=== PATIENT | female | born 1995 | race Caucasian/White ===

== ENCOUNTER 2022-06-17 15:55 | Outpatient (CLI) | payer OTHER, SELFPAY ==
--- NOTE | 2022-06-17 16:00 | CRLHL7_ITS ---
For Patients: As a result of the Century Cures Act, medical imaging exams and procedure reports are released immediately into your electronic medical record. You may view this report before your referring provider. If you have questions, please contact your health care provider. INDICATION: Evaluate anatomy. COMPARISON: 03/25/2022 TECHNIQUE: Real time leos scale imaging of the fetus was performed as well as color Doppler analysis of the umbilical vessels. FINDINGS: Sonographic imaging demonstrates a single living intrauterine gestation. Fetus demonstrates a regular cardiac rate of 148 beats per minute. Fetus has a variable position. The placenta lies posteriorly. With transvaginal imaging, the edge of the placenta is located 1 cm from the internal cervical os. Amniotic fluid volume appears normal. Single deepest vertical pocket: 6.4 cm. The cervix is closed and measures 6.4 cm in length. The composite ultrasound gestational age is calculated at 22 weeks 1 day with an estimated sonographic due date of 10/20/2022. The estimated weight is 461 grams which lies at the greater than 97th %. The following biometric measurements were obtained: Biparietal diameter: 5.4 cm/22 weeks 3 days greater than 97th% Head circumference: 19.9 cm/22 weeks 1 day 94th% Abdominal circumference: 17.7 cm/22 weeks 4 days 94th% Femur length: 3.5 cm/21 weeks 0 days 56th% The HC/AC ratio measures: 1.13 range (1.05-1.23) On anatomic survey, there is a normal appearance of the cerebral ventricles, cavum septi pellucidi, cisterna magna and cerebellum. The nose, lips, and facial profile appear normal. The cervical, thoracic and lumbar spine are well visualized and appear normal. There is a normal four-chamber heart view and the left and right ventricular outflow tracts appear normal. The diaphragm and stomach appear normal. The kidneys and bladder also appear normal. There is a normal three-vessel cord and cord insertion site. The four extremities appear normal. IMPRESSION: Sonographic gestational age 22 weeks 1 day and sonographic due date of 10/20/2022. Sonographic age 11 days ahead of the clinical age. Estimated weight greater than 97th percentile. Abdominal circumference 94th percentile. Normal anatomic survey. Low-lying placenta with the edge of the placenta 1 cm from the internal cervical os with transvaginal imaging. Dictated by Thomas Velez MD @ 06/18/2022 9:39:06 AM (Electronically Signed)
== END 2022-06-17 15:56 | disposition home or self-care (01) ==
LOC: US 15:56
PROVIDERS: Visit Provider Physician Assistant
DX: Z34.92 Encounter for supervision of normal pregnancy, unspecified, second trimester (principal); Z3A.20 20 weeks gestation of pregnancy
CPT/HCPCS: 76805

== ENCOUNTER 2022-08-12 16:52 | Outpatient (CLI) | payer OTHER, SELFPAY ==
--- NOTE | 2022-08-12 17:00 | CRLHL7_ITS ---
For Patients: As a result of the Century Cures Act, medical imaging exams and procedure reports are released immediately into your electronic medical record. You may view this report before your referring provider. If you have questions, please contact your health care provider. INDICATION: Third trimester scan, evaluate growth. COMPARISON: none TECHNIQUE: Real time leos scale imaging of the fetus was performed as well as color Doppler and spectral Doppler analysis of the umbilical artery. FINDINGS: Sonographic imaging demonstrates a single living intrauterine gestation. Fetus demonstrates a regular cardiac rate of 130 beats per minute. Fetus has a adelfo breech position. The placenta lies right anterior without evidence of placenta previa. The edge of the placenta is located 5.8 cm from the internal cervical os. Amniotic fluid volume appears normal and there is a single deepest vertical pocket: 4.2 cm. The estimated weight is 1487gm which lies at the 82nd %. On the prior OB ultrasound exam dated 06/17/2022 the estimated weight was at the greater than 97th%. BPD 66th percentile. HC 94th percentile. AC 84th percentile. FL 47th percentile. The HC/AC ratio measures 1.11 range (0.97-1.19). IMPRESSION: No previa. The edge of the placenta is 5.8 cm from the internal cervical os. Sonographic gestational age 30 weeks 0 days and sonographic due date of 10/21/2022. Sonographic age is 10 days ahead of the clinical age. Estimated weight 82nd percentile. Abdominal circumference 84th percentile. Dictated by Thomas Velez MD @ 08/13/2022 10:34:50 AM (Electronically Signed)
== END 2022-08-12 16:53 | disposition home or self-care (01) ==
LOC: US 16:52
PROVIDERS: Visit Provider Registered Nurse
DX: O44.43 Low lying placenta NOS or without hemorrhage, third trimester (principal); Z3A.28 28 weeks gestation of pregnancy; Z36.89 Encounter for other specified antenatal screening
CPT/HCPCS: 76816; 86592; 86787

== ENCOUNTER 2022-10-07 09:46 | Outpatient (CLI) | payer OTHER, SELFPAY ==
--- OUTSIDE RECORDS SUMMARY | 2022-10-07 10:37 | XMS_ITS | Clinical Summary ---
:1995 Author Organization [facility] [place] [address] Care Team Providers Name Role Phone Paty Aguilar MD Primary Care Provider Unavailable Allergies Not on File Medications Not on file Active Problems Not on file Social History Tobacco Use Types Packs/Day Years Used Date Never Assessed Sex Assigned at Date Recorded Not on file Plan of Treatment Health Maintenance Due Date Last Done Comments COVID-19 vaccine series (#1) 03/23/1996 Tdap 2006 Depression screening for age 12+ 2007 BMI (ht and wt on same day) for age 18+ 2013 Hepatitis C screening for age 18-79 2013 Tetanus booster 2015 Pap test for age 21-65 2016 Influenza for age 9-49 07/31/2022 Results Not on filefrom Last 3 Months 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
[2022-10-08 13:32] LABS: Strep B DNA Probe Negative (Negative)
[2022-10-09 08:56] LABS: Strep B Pen/Amox Allergy No
== END 2022-10-07 09:47 | disposition home or self-care (01) ==
LOC: NFLDREF 09:47
PROVIDERS: Visit Provider Obstetrics & Gynecology
DX: Z34.93 Encounter for supervision of normal pregnancy, unspecified, third trimester (principal); Z3A.36 36 weeks gestation of pregnancy
CPT/HCPCS: 87081; 87653

== ENCOUNTER 2022-10-10 15:59 | Outpatient (CLI) | payer OTHER, SELFPAY ==
--- NOTE | 2022-10-10 16:00 | CRLHL7_ITS ---
For Patients: As a result of the Century Cures Act, medical imaging exams and procedure reports are released immediately into your electronic medical record. You may view this report before your referring provider. If you have questions, please contact your health care provider. INDICATION: Third trimester scan, evaluate growth. Size less than dates. COMPARISON: 08/12/2022 TECHNIQUE: Real time leos scale imaging of the fetus was performed. FINDINGS: Sonographic imaging demonstrates a single living intrauterine gestation. Fetus demonstrates a regular cardiac rate of 137 beats per minute. Fetus has a vertex position. The placenta lies anteriorly. Amniotic fluid volume appears normal and there is a single deepest vertical pocket: 5.0 cm. The estimated weight is 3274gm which lies at the 74th %. On the prior OB ultrasound exam dated 08/12/2022 the estimated weight was at the 82nd%. BPD 81st percentile. HC 69th percentile. AC 87th percentile. FL 32nd percentile. The HC/AC ratio measures 0.99 range (0.90-1.05). IMPRESSION: Sonographic gestational age 37 weeks 5 days and sonographic due date of 10/26/2022. Sonographic age 5 days ahead of the clinical age. Estimated weight 74th percentile. Abdominal circumference 87th percentile. Dictated by Thomas Velez MD @ 10/12/2022 12:21:00 PM (Electronically Signed)
--- OUTSIDE RECORDS SUMMARY | 2022-10-10 16:04 | XMS_ITS | Clinical Summary ---
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
== END 2022-10-10 16:00 | disposition home or self-care (01) ==
LOC: US 16:00
PROVIDERS: Visit Provider Obstetrics & Gynecology
DX: O36.5930 Maternal care for other known or suspected poor fetal growth, third trimester, not applicable or unspecified (principal); Z3A.37 37 weeks gestation of pregnancy
CPT/HCPCS: 76816

== ENCOUNTER 2022-10-26 04:24 | Inpatient (IN) | payer OTHER, SELFPAY ==
[2022-10-26] VITALS (54 sets, daily range): BP systolic 85–142; BP diastolic 48–77; PULSE 67–106; RESP 16–18; TEMP 36.4–37.9; O2SAT 95–100; BMI 28.3
--- OUTSIDE RECORDS SUMMARY | 2022-10-26 03:24 | XMS_ITS | Clinical Summary ---
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
[2022-10-26] MEDS: ONDANSETRON 2 MG/ML inj 4 MG IV (05:10)
[2022-10-26 05:17] LABS: Basophils Percent Auto 0.1 % (0.0-3.0); Hematocrit 35.6 % (33.0-51.0); Hemoglobin* 12.4 gm/dL (12.0-16.0); Immature Granulocytes Pct Auto 0.2 %; Mean Corpuscular HGB Conc 35 gm/dL (32-36); Mean Corpuscular Hemoglobin 32 pg (26-34); Mean Corpuscular Volume 91 fL (80-100); Monocytes Percent Auto 4.3 % (0.0-11.0); Neutrophils Percent Auto 88.4 % (42.0-72.0); Platelet Count* 141 K/uL (140-440); RDW Coefficient of Variation % 13.1 % (11.5-15.5); Red Blood Count 3.92 m/uL (4.00-5.20); White Blood Count* 18.18 K/uL (4.50-11.00)
[2022-10-26 05:25] LABS: Slide Review Reflex No
[2022-10-26] MEDS: hydrOXYzine pamoate 25 MG CAPSULE 100 MG PO (05:48)
[2022-10-26] MEDS: MORPHINE 10 MG/ML inj IM (05:49)
[2022-10-26] MEDS: LACTATED RINGERS 1000 ML 1,000 ML 999 ML IV (06:03)
[2022-10-26 06:05] LABS: SARS PCR* Negative SARS-CoV-2 (Negative)
--- NOTE | 2022-10-26 09:18 | W.PM.LDBA ---
Subjective History of Present Illness Date Seen: 10/26/22 Narrative: Patient is being admitted to Labor and Delivery for spontaneous onset of labor with bloody show. She is a 27 year old at 39 2/7 weeks gestation. Her full history and physical was dictated by Sallie Topete CNM on 10/14/2022. Please see this for details. The patient began feeling some uterine contractions around 7:00 p.m. last evening. The became more intense and painful and she has started to notice some vaginal bleeding at 9:00 p.m.. She presented to the center for evaluation early this morning. She was quite uncomfortable with contractions at that time. She was also still found to have some bloody show. She was given Vistaril, but vomited the medication. She was then administered IM morphine, was able to get some rest. This morning, she is still experiencing some contractions, but they have decreased in intensity and frequency, now occurring at 5-7 minute intervals. 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 OB PROBLEM LIST: Partner: Robert. Baby: Boy. Blood type: A+ H&P done 10/14/2022 by VICTORIANO Pardo 1. Nicotine user, mostly vaping Recommended stopping, willing to try nicotine inhaler, ordered. Per ACOG, 6-8 per day recommended, may use up to 16. Try tapering dose over 6 weeks. 05/20/2021: Reported she did not like the nicotine inhaler. Is working on tapering vaping and discontinuing. 1-2 puffs / hour 2. History of missed AB at 16 weeks with D&C 3. Hx of gonorrhea and chlamydia, about 10 years ago per patient, with different partner 4. Low lying placenta at 20 week anatomy scan. Placental tip 1 cm from cervical os. Recommend pelvic rest and call with any bleeding. Recommend follow-up ultrasound to reassess placental location at 28 weeks. 28 weeks: Placenta 5.8cm from internal os. No further pelvic rest! 5. growth greater than 97% 20 week anatomy scan. Recommend growth ultrasound at 28 weeks. 28 weeks: EFW 82%. 6. Varicella immune 7. Breech at 32 weeks, resolved by 35 weeks. 8. Measuring smaller than dates EFW 74% at 36 weeks, vertex NEEDS pap Flu: 09/09/2022 COVID: Declines TDap: 08/29/22 OB - H&P: Exam Physical Exam: Vital signs: Temp Pulse Resp BP Pulse Ox 97.6 F 71 16 111/59 L 98 10/26/22 06:30 10/26/22 06:11 10/26/22 06:30 10/26/22 06:11 10/26/22 03:34 Constitutional: Constitutional: no acute distress (The uncomfortable visibly with contractions) Routine HEENT Exam: Head: Present normocephalic Eye: Present normal appearance Routine Neck Exam: Neck: Present full ROM Routine Respiratory Exam: Respiratory: Present CTA bilaterally Routine Cardiovascular Exam: Cardiovascular: RRR Routine Abdominal Exam: Abdominal: Absent tenderness Routine Exam: Patient deferred: external exam Perineum Description: Normal Comments: On sterile speculum examination, there was some thin pink vaginal discharge present in the vaginal vault. This was collected for AmniSure evaluation. Detailed Labor and Delivery Exam: Patient Gravid: yes Dilation (cm): 2 Effacement (%): 85 Cervix position: mid Consistency: soft Tachysystole: No Contraction intensity: Mild Fetus (Single): Station: -1 (Vertex) Heart Rate Baseline: 115 Monitor Accelerations: Present Monitor Decelerations: Early (Occasional) Longterm Variability: Moderate (6-25) Routine Extremities Exam: Extremities: Present normal inspection; Absent pedal edema Routine Back/Spine/Pelvis Exam: Back/Spine: full ROM Routine Neurological Exam: Present alert and oriented X3 Routine Psychiatric Exam: Present normal affect OB - Problem Based A/P Additional Plan (1) Spontaneous onset of labor: Status: Acute Delivery/Labor/Induction Plan Plan: expectant management
[2022-10-26 09:22] LABS: Amnisure Rom* Negative
[2022-10-26] MEDS: LACTATED RINGERS 1000 ML 1,000 ML 125 ML IV (10:24)
[2022-10-26] MEDS: ROPIVACAINE 0.2% 100 ml 100 ML 12 MG EPIDURAL (12:33)
[2022-10-26] MEDS: LIDOCAINE 2% (PF) 5 ML VIAL EPIDURAL (12:33)
--- NOTE | 2022-10-26 13:11 | P.ANBPRC_ITS ---
[facility] Medical History (Updated 10/26/22 @ 09:24 by Rosey Mejía MD) Missed Surgical History (Updated 10/14/22 @ 16:04 by Sallie Topete CNM) History of appendectomy History of dilation and curettage Family History (Updated 10/14/22 @ 16:07 by Sallie Topete CNM) Mother No problems noted. Father No problems noted. 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 Partner: Robert, Romel Lives with: Robert, brother in law and girlfriend, another roommate Pets: 3 dogs, snake, 9 outdoor cat (has litter box in garage) Abuse: Denies past/present, Pscyhosocial Special Diet: Denies Ok with a blood transfusion: yes Culture or evangelical beliefs: denies RISK FACTORS Exercise Times/wk: denies Depression/Anxiety: Lots of anxiety about this due to loss at 16 weeks w/ previous MARIEL: 13 PHQ 9: 5 Seat Belt Use: Routinely Smoking: Vaping, daily 1x per hour; previous smoker; Robert also vapes and [id number] smokes cigarettes, not in house; Brother in law uses THC not in home Alcohol/day: Denies while , prior yes Caffeine: Energy drinks 1/day prior to , Drug Use: Denies past/present Chicken Pox: Yes as a child MRSA: Denies Smoking Status: Current every day smoker Meds Home Medications and Allergies Home Medications Medication Instructions Recorded Confirmed Type ascorbic acid (vitamin C) 1,000 mg 1 g PO QDAY 06/17/22 10/26/22 History tablet calcium carbonate 500 mg calcium 500 mg PO DAILY 06/17/22 10/26/22 History (1,250 mg) tablet docosahexaenoic acid 200 mg 200 mg PO DAILY 06/17/22 10/26/22 History capsule ( DHA) ergocalciferol (vitamin D2) 10 mcg 400 unit PO QDAY 06/17/22 10/26/22 History (400 unit) tablet esomeprazole magnesium 20 mg 20 mg PO QDAY 09/26/22 10/26/22 History capsule,delayed release Allergies Allergy/AdvReac Type Severity Reaction Status Date / Time No Known Allergies Allergy Verified 10/26/22 03:51 Results Labs Labs: Laboratory Results - last 24 hr 10/26/22 10/26/22 10/26/22 05:11 05:11 05:20 WBC 18.18 H RBC 3.92 L Hgb 12.4 Hct 35.6 MCV 91 MCH 32 MCHC 35 RDW Coeff of Vanda 13.1 Plt Count 141 Neut % (Auto) 88.4 H Lymph % (Auto) 7.0 L Tyrrell % (Auto) 4.3 Eos % (Auto) 0.0 Baso % (Auto) 0.1 Neut # (Auto) 16.10 H Lymph # (Auto) 1.30 Tyrrell # (Auto) 0.80 Eos # (Auto) 0.00 Baso # (Auto) 0.00 Abs Immat Gran (auto) 0.00 Imm/Tot Granulo (auto) 0.2 Membrane Rupture SARS-CoV-2 (PCR) Negative SARS-CoV-2 Blood Type A Positive Antibody Screen NEGATIVE 10/26/22 09:03 WBC RBC Hgb Hct MCV MCH MCHC RDW Coeff of Vanda Plt Count Neut % (Auto) Lymph % (Auto) Tyrrell % (Auto) Eos % (Auto) Baso % (Auto) Neut # (Auto) Lymph # (Auto) Tyrrell # (Auto) Eos # (Auto) Baso # (Auto) Abs Immat Gran (auto) Imm/Tot Granulo (auto) Membrane Rupture Negative SARS-CoV-2 (PCR) Blood Type Antibody Screen Vital Signs Vital Signs: Last Vital Signs Temp 97.6 F 10/26/22 06:30 Pulse 97 10/26/22 13:10 Resp 16 10/26/22 06:30 BP 105/55 L 10/26/22 13:10 Pulse Ox 100 10/26/22 13:01 Weight: 79.469 kg Height: 167.64 cm Anesthesia Procedures Epidural Insertion Patient Location: OB Start Time: 12:15 Stop Time: 13:15 Start Date: 10/26/22 Stop Date: 10/26/22 Reason for Block: primary anesthetic Patient Position: sitting Performed By: Jose Ramon Hernandez Preanesthetic Checklist: IV checked, risks and benefits discussed, surgical consent, monitors and equipment checked, pre-op evaluation, timeout performed and anesthesia consent Prep: chlorhexidine gluconate Monitoring: blood pressure monitoring, color television console monitor, continuous pulse oximetry and heart rate Approach: midline Vertebral Space: lumbar (1-5) Needle Type: Tuohy needle Injection Technique: continuous catheter Needle gauge: 17 Needle Length (cm): 10 cm Needle Insertion Depth (cm): 6 Catheter Gauge: 19 Catheter Type: multi-orifice Catheter at skin depth (cm): 12 Test Dose Result: negative and lidocaine 1.5% with epinephrine 1 to 200,000 Events: other
--- NOTE | 2022-10-26 15:30 | P.OBPN_ITS ---
Subjective Time Seen by Provider: 15:30 Date Seen: 10/26/22 Narrative: Comfortable with epidural. Objective Vital Signs: Last Vital Signs Temp 98.3 F 10/26/22 11:01 Pulse 78 10/26/22 15:07 Resp 16 10/26/22 11:01 BP 114/57 L 10/26/22 15:07 Pulse Ox 100 10/26/22 13:01 Pelvic Exam Dilation (cm): 5 Effacement (%): 90 Station: 0 Comments: bloody show Contractions Monitor mode: External Contraction Frequency: 2-4 Contraction intensity: Mild Assessment Station: 0 (Vertex) Amniotic Membrane Status: AROM (fluid color uncertain due to bloody show) Status: Category ll Heart Rate Baseline: 115 Retirement Variability: Moderate (6-25) Monitor Accelerations: Present Monitor Decelerations: Early (Occasional) Plan Plan: AROM performed. Continue current management.
[2022-10-26] MEDS: OXYTOCIN 30 unit/500 ML in NS 30 UNIT/500 ML BAG 300 UNIT IVPB (19:18)
[2022-10-26] MEDS: LIDOCAINE 1 % PF 30 ML INJECTION (19:33)
[2022-10-26] MEDS: LORazepam 2 MG/ML inj 0.5 MG IVP (19:52)
--- NOTE | 2022-10-26 19:58 | P.OBPRC_ITS ---
Procedure Delivery date: 10/26/22 Procedure Done: Global Intrapartal Events: Excessive Bleeding (Presented with > average bloody show in early labor) Delivery augmentation: rupture of membranes Delivery monitor: external FHT and external uterine Route of delivery: Laceration description: Vaginal - 2nd Degree Delivery repair: Chromic (3-0) Estimated blood loss (mL): 190 Anesthesia type: Epidural Disposition: floor Complications: None. Narrative: The patient is a 27 year-old admitted on 10/25/2022 at 39 Weeks, 1 Days gestation for bloody show in early labor.? Cervical exam on presentation was 1.5 cm/75 % effaced/-1 station with membranes intact in vertex presentation.? Contractions were every 6 minutes.? heart rate demonstrated baseline 115 bpm with moderate variability, + accelerations, - decelerations; a category 1 tracing.?The patient was given IM morphine overnight for sleep. The following morning, cervix was 2 cm dilated, 85% effaced. Labor was managed expectantly. Labor onset:? 0900 om 10/26/2022 AROM occurred at 1527 with clear fluid mixed with bloody show. ? Labor Analgesia:? Fentanyl @0945 and 1025, Epidural @ 1230 ? Pitocin:? No ? Complete:? 1820 ? Pushing:? 1830 ? heart tones during second stage were 110s-120s baseline with variable decels to 80s-90s, goo variability. ? At 1917 a viable male infant delivered in vertex OA presentation over intact perineum via spontaneous vaginal delivery.? was placed on maternal abdomen.? Cord was clamped and cut after a 30-60 second delay.? Nose and mouth were bulb suctioned.? weight pending.? 8 at 1 minute and 8 at 5 minutes.? Shoulder dystocia: no.? Nuchal cord: yes, loose x1, rediced over the head prior to delivery of the shoulders. ? Placenta delivered spontaneously and complete at 1926 with a 3 vessel cord. ? Mother and were stable after delivery. ? Lacerations:? 2nd degree vaginal midline, repaired with 3-0 chromic. ? Blood loss: 190 mL. Blood loss measurement type: QBL ? Sponge and needles counts are correct. Patient experienced muscle contractures in neck, jaw and shoulders following delivery thought to be secondary to hyperventilation and shaking. Coached on slow breathing, 0.5 mg lorazepam administered IV. [place] Gender: Male presentation: vertex Placental Delivery Description: Spontaneous Cord Description: 3 Vessels and Nuchal Cord (x1, loose)
[2022-10-27] MEDS: ACETAMINOPHEN 500 MG TABLET 1000 MG PO ×3 (00:31→15:53)
[2022-10-27 03:10] VITALS: BP 105/68; PULSE 73; RESP 16; TEMP 36.6; O2SAT 95
[2022-10-27] MEDS: IBUPROFEN 600 MG TABLET PO ×3 (04:13→20:20)
[2022-10-27 07:41] LABS: Hemoglobin* 11.6 gm/dL (12.0-16.0)
--- NOTE | 2022-10-27 08:06 | PM.OBPNVD1 ---
OB - PN:Subj Subjective Time Seen by Provider: 08:06 Date Seen: 10/27/22 Interval history: Into room for introductions and to assess ptSuad Leung is a 27 year-old G2 now P0011 admitted on 10/25/2022 at 39 Weeks, 1 Days gestation for bloody show in early labor. She had an uncomplicated vaginal delivery. She delivered a viable male infant. She is breast feeding, which is going fairly well but pt would like continued support from RN and today. the patient has done well. Patient comments OB post-: no complaints, pain well controlled, tolerating diet and flatus present status: and doing well [place] feeding status: exclusively OB - PN: Obj Exam Physical Exam: Vital signs: Temp Pulse Resp BP Pulse Ox O2 Del Method 97.9 F 73 16 105/68 95 10/27/22 03:10 10/27/22 03:10 10/27/22 03:10 10/27/22 03:10 10/27/22 03:10 10/27/22 03:10 Constitutional: Constitutional: no acute distress Routine HEENT Exam: Head: Present normocephalic Eye: Present normal appearance Routine Neck Exam: Neck: Present full ROM Routine Respiratory Exam: Respiratory: Present CTA bilaterally Routine Cardiovascular Exam: Cardiovascular: Present RRR Routine Abdominal Exam: Abdominal: Present normal bowel sounds, soft and tenderness Fundus: Present firm Routine Exam: External: Present normal external exam Perineum Description: Normal Routine Extremities Exam: Extremities: Present full ROM; Absent pedal edema Routine Back/Spine/Pelvis Exam: Back/Spine: Present full ROM Routine Skin Exam: Skin: Present dry, intact, normal color and warm; Absent rash Routine Neurological Exam: Neurological: Present alert and oriented X3 Detailed Neurological Exam: Coma Scale: Eye Opening: Spontaneous (4) Verbal Response: Orientated (5) Routine Psychiatric Exam: Psychiatric: Present normal affect, normal thought process, cooperative, good insight and good judgment OB - PN: Obj Data Labs Labs: Laboratory Results - last 24 hr 10/26/22 10/27/22 09:03 07:33 Hgb 11.6 L Membrane Rupture Negative OB - PN: A/P Vaginal Delivery Assessment and Plan (1) state: Status: Acute (2) Lactating mother: Status: Acute Plan 27 yo G2 now P1 PPD 1 Lactating Mother Routine cares support as needed Plan to discharge home tomorrow Plan day: 1 Plan: routine care
[2022-10-27 08:10] VITALS: BP 110/71; PULSE 64; RESP 14; TEMP 36.6; O2SAT 96
[2022-10-27] MEDS: DOCUSATE SODIUM 100 MG CAPSULE PO (09:33)
[2022-10-27 13:00] VITALS: BP 119/78; PULSE 65; RESP 14; TEMP 37
[2022-10-27 15:48] VITALS: BP 116/56; PULSE 95; RESP 16; TEMP 36.4; O2SAT 96
[2022-10-27 20:15] VITALS: BP 123/69; PULSE 65; RESP 16; TEMP 37; O2SAT 96
[2022-10-28 03:15] VITALS: BP 110/72; PULSE 73; RESP 16; TEMP 36.6; O2SAT 94
[2022-10-28] MEDS: ACETAMINOPHEN 500 MG TABLET 1000 MG PO (04:49)
[2022-10-28 08:27] VITALS: BP 118/71; PULSE 79; RESP 16; TEMP 36.6; O2SAT 96
[2022-10-28] MEDS: DOCUSATE SODIUM 100 MG CAPSULE PO (08:33)
[2022-10-28] MEDS: IBUPROFEN 600 MG TABLET PO (08:33)
--- NOTE | 2022-10-28 08:39 | P.DS_ITS ---
DS: Providers Provider Date Seen: 10/28/22 Date of admission: 10/26/22 04:24 Primary care physician: Not a Local Provider Admitting Clinician: Rosey Mejía MD Attending Physician on discharge: Rosey Mejía MD DS: Diagnosis Discharge Diagnosis (1) Lactating mother: Status: Acute (2) state: Status: Acute (3) Status post normal vaginal delivery: Status: Acute Exam Const: Vital Signs, click to edit/add: Vital Signs - 24 hr 10/27/22 13:00 10/27/22 15:48 10/27/22 20:15 Temperature 98.6 F 97.5 F L 98.6 F Pulse Rate [Pulse Oximeter] 65 95 65 Respiratory Rate 14 16 16 Blood Pressure [Ri ght Arm] 119/78 116/56 L 123/69 Pulse Oximetry 96 96 Oxygen Delivery Me thod Room Air Room Air Room Air 10/28/22 03:15 10/28/22 08:27 Temperature 97.8 F 97.9 F Pulse Rate [Pulse Oximeter] 73 79 Respiratory Rate 16 16 Blood Pressure [Ri ght Arm] 110/72 118/71 Pulse Oximetry 94 96 Oxygen Delivery Me thod Room Air Documenting provider has reviewed patient's vital signs: yes Common normals: no apparent distress, oriented x3, healthy appearing and alert HENMT: Common normals: normocephalic Head and scalp: normocephalic Eye: Common normals: PERRL Pupil: PERRL Neck & C-Spine: Common normals: full ROM and supple Chest: Common normals: inspection of chest normal Resp: Common normals: normal respiratory effort and clear to auscultation bilaterally Auscultation: clear to auscultation bilaterally Cardio: Common normals: regular rate and regular rhythm Rate: regular rate Rhythm: regular rhythm GI: Common normals: soft to palpation Palpation: soft : OB/external & speculum: Yes perineal/vaginal laceration (well approximated) Laceration: 2nd Uterus: U/U Lochia: small Back & Pelvis: Common normals: thoracic and lumbar spine normal to inspection Extremity: Common normals: normal to inspection and full ROM Neuro: Common normals: oriented x3 Sensorium/orientation: alert Speech: speech normal Psych: Common normals: mental status grossly normal, thought process normal, speech normal and activity/motor behavior normal Speech: normal speech Thought process: normal thought process Skin: Common normals: no rashes or lesions noted General skin exam: no rashes or lesions noted OB - DS: Summary Hospital Course Hospital Course: The patient is a 27 year old G 2 P 1011 at 39 1/7 weeks gestation that was admitted to the [facility] on 10/26/22 for spontaneous onset of labor. She had an uncomplicated vaginal delivery. She delivered a viable male . She is breast feeding. the patient has done well. The pain is well controlled with current medications.? She has no new complaints.? Urinary output is adequate and she is voiding without difficulty.? Has a good appetite, is tolerating a general diet, is passing flatus, and has not yet had a bowel movement.? Has small amount of rubra lochia.? She is ambulating well. She is and reports it is going well.? Peripartum Data delivery method: Vaginal Laceration description: Perineal - 2nd Degree complications: none Dickens Infant Gender: Male Infant Discharge Plan: Home Status at Discharge Functional status at discharge: independent ambulation Overall status at discharge: patient is progressing back to baseline Time Spent with Patient Time attestation: Total time spent providing and/or coordinating discharge services: Time spent: Less than 30 minutes Discharge Plan Discharge Disposition: Home, Self-Care Date of Admission: 10/26/22 04:24 Primary Care Provider: Provider,Not a Local Condition: Stable Anticipated Discharge Date/Time: 10/28/22 09:00 Discharge Medications: New docusate sodium 100 mg Capsule 100 mg PO DAILY Qty: 30 0RF ibuprofen 600 mg Tablet 600 mg PO Q6H PRNQty: 30 0RF acetaminophen 500 mg Tablet 1,000 mg PO Q6H PRNQty: 0 0RF Continued ergocalciferol (vitamin D2) 10 mcg (400 unit) tablet 400 unit PO QDAY ascorbic acid (vitamin C) 1,000 mg tablet 1 g PO QDAY DHA 200 mg capsule 200 mg PO DAILY calcium carbonate 500 mg calcium (1,250 mg) tablet 500 mg PO DAILY esomeprazole magnesium 20 mg capsule,delayed release(DR/EC) 20 mg PO QDAY Discharge Orders: Discharge Order (Routine); Ordered 10/28/22 Ordered By: Sallie Topete Patient Education: OB Vaginal/Breast Feeding Additional Instructions: Discharge instructions were reviewed with the patient including signs and symptoms of infection and home going medications Nothing vaginally for 6 weeks: no tampons or intercourse Do not drive while taking narcotic pain medication(s) Off Work or School for 6 weeks 2-week visit: discuss infant feeding concerns, review control options and screen for anxiety/depression. 6-week visit for an annual exam. consultation services are available to all mothers and babies for the first year after delivery.? To make an appointment, please call [phone]. Activity Level: Activity as Tolerated Follow Up Appointments: [facility] [Provider Group] (2 weeks and 6 weeks ) Forms: General Assembly Info Instructions
== END 2022-10-28 12:10 | disposition home or self-care (01) | DRG 807 ==
LOC: OB OUT 04:44 → OB 04:44
PROVIDERS: Admitting Provider Obstetrics & Gynecology; Visit Provider Obstetrics & Gynecology
DX: O99.334 Smoking (tobacco) complicating childbirth (principal); Z37.0 Single live birth; F17.290 Nicotine dependence, other tobacco product, uncomplicated; O70.1 Second degree perineal laceration during delivery; R06.4 Hyperventilation; Z3A.39 39 weeks gestation of pregnancy
CPT/HCPCS: 01967; 36415; 84112; 85018; 85025; 86850; 86900; 86901; 87635; A9270; J2001; J2060; J2270; J2405; J2795; J3010; J7120

== ENCOUNTER 2022-11-05 13:03 | Outpatient (CLI) | payer OTHER, SELFPAY ==
--- OUTSIDE RECORDS SUMMARY | 2022-11-05 13:36 | XMS_ITS | Clinical Summary ---
:1995 Author Organization [facility] [place] [address] Care Team Providers Name Role Phone Paty [...] 2006 Depression screening for age 12+ 2007 HIV for age 15-65 2010 BMI (ht and wt on same day) for age 18+ 2013 Hepatitis C screening for age 18-79 2013 Tetanus booster 2015 Pap test for age 21-65 2016 Influenza for age 9-49 07/31/2022 Results Not on filefrom Last 3 Months Care Teams Beef Selector Relationship Specialty Start Date End Date Paty Aguilar MD PCP - General Family Practice 11/03/14
--- NOTE | 2022-11-05 17:14 | W.PM.LAC.MC ---
Consult Note - Mom Date of Visit Date of visit: 11/05/22 healthcare market consultant: Evelyn Kramer Visit Code: Visit Patient's Information Phone number: [phone] : 2 Para: 1 Allergies No Known Allergies Allergy (Verified 10/26/22 03:51) Mother's Medical History: Medical History (Updated 10/29/22 @ 00:01 by ) Delivery Information Weeks Gestation: 39.2 Gestational Age: AGA Weight: 3.27 kg Discharge Weight: 3.076 kg Baby's Information Baby's Age at Visit: 9 days Baby's Provider or Clinic: Dr. Florez Jaundice: No Reason for Consult Reason for Consult: difficulty latching on the right, using a nipple shield on both sies, concerned the production isn't equal Past Experience Past Experience: No Current Frequency of Day Feedings: every 3 - 4 hours around the clock Both Breasts: Yes Suck: strong Latch: fairly wide Length of Time: 10 - 15 min/side Pumping Pumping: Yes (occasionally) Quantity Pumped: has pumped between feedings; 1 - 1.5 oz/side Supplementing EMB Supplement: Yes (baby has had two 3 oz bottles) Formula Supplement: No Baby Elimination Number of Wet Diapers a Day: with every feeding Number of BM a Day: with every feeding; yellow and seedy Breast/Nipple Condition Breast Information: WNl Engorgement: No Maternal Nipple Condition - Left: Common Nipple Maternal Nipple Condition - Right: Inverted Sore Nipples: No Onsite Pre-Feed weight: 3.304 kg Post-Feed weight: 3.382 kg Milk Transferred (mL): 78 Pre-Nursing Left Nipple: Within Normal Limits Pre-Nursing Right Nipple: Within Normal Limits Post-Nursing Left Nipple: Within Normal Limits Post-Nursing Right Nipple: Within Normal Limits Assessments/Interventions Assessments/Interventions: Met with mom and this now 9 day old ex- term AGA baby for consult.? Mom reports she's nursing with the nipple shield every 3 - 4 hours for 10 - 15 minutes/side.? She's pumped on occasion in between feedings and twice POC have given baby a bottle as he was hard to calm; at those feedings he took 3 oz.? Mom is concerned that her right side doesn't produce quite as much as her left.? She brought her Evenflo pump to clinic to review. Breasts WNL- symmetrical with rounded lower quadrants, intramammary distance is < 1.5 inches.? Right nipple is inverted, everts slightly with stimulation; left is everted.? No damage noted to either nipple. Baby has gained 30 grams since his circumcision visit yesterday and he's 34 grams above BW at 9 DOL.? Per POC he prefers to turn his head left, but has equal ROM when moving his extremities.? His palate is WNL.? His upper frenulum is tight and his lower frenulum may be a little posterior but he easily extends his tongue past the gumline and the tongue has good lateral movement.? He has a strong suck on a finger. We attempted to latch baby to the right side without the shield but were unsuccessful.? When the shield was used baby appeared to have a deep latch and mom was comfortable.? He nursed for about 10 minutes before getting sleepy.? Mom transferred him to the left and with assistance was able to latch him without the shield.? He again nursed for about 10 minutes, transferring 76 ml. We reviewed mom's pump; the flange may be a little big but mom is comfortable when she pumps.? Gave a flange fit guide and she could try a smaller size to experiment.? Also reviewed it's common to have one side produce more milk than the other.? A few suggestions were given that may boost production on that side. Plan: 1. Continue to breastfeed ALD- not letting him go past 3 - 4 hours for now.? Suggested she continue offering both sides and practice without the shield at least on the left.? OK to use it if mom or baby get frustrated and try again at another feeding.? Baby is a little bit of a sleepy feeder but POC do a good job of keeping him awake. 2. Suggested mom pump to comfort if she's uncomfortable after baby nurses, or pump to empty if baby doesn't nurse well/she doesn't see milk in the shield. 3. No medical reason to supplement.? If baby seems hungry after a nursing session, ok to offer a bottle (reviewed paced feeding) or mom could try the going back to the starting side. 4. Gave suggestions to help with baby's neck ROM. 4. Will f/u on 11/01 for a one month weight check; could suggest bodywork for baby. Meds Home Medications and Allergies Home Medications Medication Instructions Recorded Confirmed Type ascorbic acid (vitamin C) 1,000 mg 1 g PO QDAY 06/17/22 10/26/22 History tablet calcium carbonate 500 mg calcium 500 mg PO DAILY 06/17/22 10/26/22 History (1,250 mg) tablet docosahexaenoic acid 200 mg 200 mg PO DAILY 06/17/22 10/26/22 History capsule ( DHA) ergocalciferol (vitamin D2) 10 mcg 400 unit PO QDAY 06/17/22 10/26/22 History (400 unit) tablet esomeprazole magnesium 20 mg 20 mg PO QDAY 09/26/22 10/26/22 History capsule,delayed release Allergies Allergy/AdvReac Type Severity Reaction Status Date / Time No Known Allergies Allergy Verified 10/26/22 03:51
== END 2022-11-05 13:04 | disposition home or self-care (01) ==
PROVIDERS: Visit Provider Registered Nurse
DX: Z39.1 Encounter for care and examination of lactating mother (principal)
CPT/HCPCS: 99211

== ENCOUNTER 2023-10-13 18:08 | Outpatient (CLI) | payer OTHER, SELFPAY | END 2023-10-13 18:09 | disposition home or self-care (01) | PROVIDERS: Visit Provider Registered Nurse | DX: Z01.419 Encounter for gynecological examination (general) (routine) without abnormal findings (principal); Z13.6 Encounter for screening for cardiovascular disorders; Z13.1 Encounter for screening for diabetes mellitus | CPT/HCPCS: 80061; 82947 ==

== ENCOUNTER 2025-04-04 16:02 | Outpatient (CLI) | payer OTHER, SELFPAY ==
--- NOTE | 2025-04-04 16:00 | CRLHL7_ITS ---
For Patients: As a result of the Century Cures Act, medical imaging exams and procedure reports are released immediately into your electronic medical record. You may view this report before your referring provider. If you have questions, please contact your health care provider. OBSTETRICAL ULTRASOUND TRANSVAGINAL ??? FIRST TRIMESTER, 04/04/2025 CLINICAL INDICATION: Dating and viability. LMP: 02/02/2025 MICHELLE by LMP: 11/09/2025 Gestational age: 8 weeks 5 days Previous ultrasound: No TECHNIQUE: Real-time leos-scale imaging of the fetus was performed transvaginal for better visualization. FINDINGS: CRL: 2.1 cm, 8 weeks 5 days; MICHELLE 11/09/2025 heart rate: 176 BPM Gestational sac: 3.8 cm, appears within normal limits Yolk sac: 2.6 mm, appears within normal limits Right ovary: Not visualized Left ovary: Within normal limits; 3.6 x 2.2 x 2.3 cm, CL 1.9 x 1.9 x 1.7 cm IMPRESSION: 1. Single living intrauterine measuring 8 weeks 5 days and sonographic due date of 11/09/2025. 2. Corpus luteal cyst of left ovary. Nonvisualization of right ovary. THOMAS ALVARADO M.D. Diagnostic Radiologist [email or web address] Transcribed: 9:[address]/Dictated by: Thomas Alvarado MD @ 04/05/2025 8:52:00 AM (Electronically Signed)
== END 2025-04-04 16:03 | disposition home or self-care (01) ==
LOC: US 16:02
PROVIDERS: Visit Provider Registered Nurse
DX: Z34.91 Encounter for supervision of normal pregnancy, unspecified, first trimester (principal); O34.81 Maternal care for other abnormalities of pelvic organs, first trimester; N83.12 Corpus luteum cyst of left ovary; Z3A.08 8 weeks gestation of pregnancy
CPT/HCPCS: 76817; 83021; 86703; 86706; 86803; 86850; 86900; 86901; 87086; 87340; 87491; 87591

== ENCOUNTER 2025-04-04 16:51 | Outpatient (CLI) | payer OTHER, SELFPAY ==
[2025-04-05 00:19] LABS: Chlamydia DNA Amplified* NOT DETECTED (No Detected); GC DNA Amplified* NOT DETECTED (No Detected)
== END 2025-04-04 16:52 | disposition home or self-care (01) ==
PROVIDERS: Visit Provider Registered Nurse
DX: Z34.91 Encounter for supervision of normal pregnancy, unspecified, first trimester (principal); Z3A.08 8 weeks gestation of pregnancy
CPT/HCPCS: 83020; 83021; 85660; 86592; 86703; 86704; 86706; 86762; 86787; 86803; 86850; 86900; 86901; 87086; 87340; 87491; 87591

== ENCOUNTER 2025-05-02 17:11 | Outpatient (CLI) | payer OTHER, SELFPAY | END 2025-05-02 17:12 | disposition home or self-care (01) | PROVIDERS: Visit Provider Registered Nurse | DX: R79.89 Other specified abnormal findings of blood chemistry (principal); R53.83 Other fatigue; Z13.79 Encounter for other screening for genetic and chromosomal anomalies | CPT/HCPCS: 84439; 84443; 84481 ==

== ENCOUNTER 2025-06-06 17:10 | Outpatient (CLI) | payer OTHER, SELFPAY | END 2025-06-06 17:11 | disposition home or self-care (01) | LOC: NFLDREF 06-09 11:27 | PROVIDERS: Visit Provider Registered Nurse | DX: O23.42 Unspecified infection of urinary tract in pregnancy, second trimester (principal); N39.0 Urinary tract infection, site not specified; R39.9 Unspecified symptoms and signs involving the genitourinary system; R79.89 Other specified abnormal findings of blood chemistry; Z3A.17 17 weeks gestation of pregnancy | CPT/HCPCS: 84443; 87086 ==

== ENCOUNTER 2025-06-28 07:32 | Outpatient (CLI) | payer OTHER, SELFPAY ==
--- NOTE | 2025-06-28 07:15 | CRLHL7_ITS ---
For Patients: As a result of the Century Cures Act, medical imaging exams and procedure reports are released immediately into your electronic medical record. You may view this report before your referring provider. If you have questions, please contact your health care provider. OBSTETRICAL ULTRASOUND ??? ANATOMY SURVEY INDICATION: anatomy survey. LMP: 02/02/2025 MICHELLE by LMP: 11/10/2025 GESTATIONAL AGE: 20 weeks 6 days TECHNIQUE: Real-time leos-scale imaging of the fetus was performed transabdominal. FINDINGS: position: Vertex Cervix: Visualized Technique: Transabdominal Length of closed cervix: 4.0 cm Placenta position: Posterior Technique: Transabdominal Placenta tip to internal os: 5.7 cm Umbilical cord: 3-vessel cord Placental insertion: Central Amniotic fluid: 3.2 cm SDP (greater than/equal to 2, less than 8 cm) ANATOMY SURVEY: Observed Structures Cerebellum: 2.2 cm, 21 weeks 4 days Cisterna magna: 4.2 mm Nuchal fold: 55 mm Lateral ventricle: 6.8 mm CSP: Yes Midline falx: Yes Choroid plexus: Yes Spine: Yes Stomach: Yes Abdominal cord insert: Yes Urinary bladder: Yes Kidneys: Yes Diaphragm: Yes Nose/lips: Yes Orbital view: Yes Profile: Yes Upper extremities: Yes Lower extremities: Yes Hands: Yes Feet: Yes 4-chamber heart: Yes LVOT: Yes RVOT: Yes 3VV: Yes 3VTV: Yes BIOMETRY BPD: 5.0 cm, 21 weeks 1 day, 63% HC: 19.1 cm, 21 weeks 2 days, 62% AC: 17.5 cm, 22 weeks 3 days, 88% FL: 3.5 cm, 21 weeks 1 days, 48.3% FL/AC: 20.02% HC/AC ratio: 1.09 heart rate: 145 bpm age by this ultrasound: 21 weeks 3 days MICHELLE by this ultrasound: 11/05/2025 Estimated weight: 446.6 grams (1 pounds 0 ounces) Percentile by MICHELLE: 88% IMPRESSION: 1. Normal anatomic survey. 2. Concordance of clinical and sonographic dates. 3. A placental medrano is present at the inferior placenta which measures 5.4 x 1.5 x 4.3 cm. This is not near the placental cord insertion. THOMAS ALVARADO M.D. Diagnostic Radiologist [email or web address] DW/Dictated by: Thomas Alvarado MD @ 07/02/2025 8:37:00 AM (Electronically Signed)
== END 2025-06-28 07:33 | disposition home or self-care (01) ==
LOC: US 07:33
PROVIDERS: Visit Provider Registered Nurse
DX: Z34.92 Encounter for supervision of normal pregnancy, unspecified, second trimester (principal); Z3A.20 20 weeks gestation of pregnancy
CPT/HCPCS: 76805

== ENCOUNTER 2025-08-17 08:41 | Outpatient (CLI) | payer OTHER, SELFPAY | END 2025-08-17 08:42 | disposition home or self-care (01) | LOC: NFLDREF 08-23 06:35 | PROVIDERS: Visit Provider Advanced Practice Midwife | DX: Z34.93 Encounter for supervision of normal pregnancy, unspecified, third trimester (principal) | CPT/HCPCS: 86592 ==

== ENCOUNTER 2025-09-14 12:54 | Outpatient (CLI) | payer OTHER, SELFPAY ==
--- NOTE | 2025-09-14 13:03 | CRLHL7_ITS ---
For Patients: As a result of the Cures Act, medical imaging exams and procedure reports are released immediately into your electronic medical record. You may view this report before your referring provider. If you have questions, please contact your health care provider. OB ULTRASOUND FOLLOW-UP CLINICAL HISTORY: Growth, possible placental medrano seen on previous ultrasound. TECHNIQUE: Real time leos scale imaging of the fetus was performed. Transabdominal imaging performed. COMPARISON: 06/28/2025. FINDINGS: MICHELLE by LMP: 11/09/2025. GA: 32 weeks 0 days. Gestation: Single. Cervix: Visualized. Measurement: 3.8 cm. Positioning: Breech. Amniotic Fluid: 5.1 cm SDP. Placenta: Technique: TA. Placenta Position: Posterior. Dopplers: Heart Rate: 152 bpm. BIOMETRY BDP: 8.4 cm, 33 weeks 6 days. 88.4% HC: 31.6 cm, 35 weeks 4 days. 93.9% AC: 28.9 cm, 33 weeks 0 days. 76.1% FL: 6.2 cm, 32 weeks 0 days. 36.6% FL/AC Ratio: 21.31% HC/AC Ratio: 1.09. EFW: 2099 grams, 4 lb 10 oz. Age by this US: 33 weeks 4 days. MICHELLE by this US: 10/29/2025. Percentile by MICHELLE: 72.2% IMPRESSION: 1. No placental medrano noted. 2. Sonographic gestational age 33 weeks 4 days and sonographic due date 10/29/2025. Sonographic age is 11 days ahead of the clinical age. 3. Estimated weight is 72nd percentile. Abdominal circumference 76th percentile. Thomas Velez M.D. Diagnostic Radiologist [email or web address] Transcribed: 8:56 am DW/Dictated by: Thomas Velez MD @ 09/17/2025 10:34:00 PM (Electronically Signed)
== END 2025-09-14 12:55 | disposition home or self-care (01) ==
LOC: US 12:54
PROVIDERS: Visit Provider Advanced Practice Midwife
DX: O43.103 Malformation of placenta, unspecified, third trimester (principal); O36.63X0 Maternal care for excessive fetal growth, third trimester, not applicable or unspecified; Z3A.32 32 weeks gestation of pregnancy
CPT/HCPCS: 76816

== ENCOUNTER 2025-10-11 16:44 | Outpatient (CLI) | payer OTHER, SELFPAY ==
[2025-10-11 17:02] VITALS: BP 116/74; PULSE 73; PULSE 75; PULSE 80; TEMP 36.8; O2SAT 92; O2SAT 96
[2025-10-11 17:40] LABS: Amnisure Rom* Negative
--- NOTE | 2025-10-11 18:00 | CRLHL7_ITS ---
For Patients: As a result of the Century Cures Act, medical imaging exams and procedure reports are released immediately into your electronic medical record. You may view this report before your referring provider. If you have questions, please contact your health care provider. INDICATION: Contractions, fluid and position TECHNIQUE: Ultrasound OB pelvis transabdominal. Real-time leos-scale imaging of the fetus was performed. COMPARISON: Ob ultrasound 09/14/2025 FINDINGS: Gestation: Single Presentation: Breech Placenta location: Posterior heart rate: 129 bpm Cervix: Not visualized Amniotic fluid volume single deepest pocket 7.6 cm IMPRESSION: Single live intrauterine gestation in breech position. Top-normal amniotic fluid with single deepest pocket of 7.6 cm. Dictated by Zoë Longo MD @ 10/11/2025 6:42:11 PM (Electronically Signed)
== END 2025-10-11 18:55 | disposition home or self-care (01) ==
LOC: OB OUT 16:45 → OB 16:46
PROVIDERS: Visit Provider Obstetrics & Gynecology
DX: O47.03 False labor before 37 completed weeks of gestation, third trimester (principal); Z3A.36 36 weeks gestation of pregnancy
CPT/HCPCS: 59025; 76815; 84112; G0463

== ENCOUNTER 2025-10-12 14:46 | Outpatient (CLI) | payer OTHER, SELFPAY ==
[2025-10-13 20:09] LABS: Strep B DNA Probe Negative (Negative)
[2025-10-13 20:49] LABS: Strep B Susceptibility Needed? No
== END 2025-10-12 14:47 | disposition home or self-care (01) ==
LOC: NFLDREF 14:46
PROVIDERS: Visit Provider Obstetrics & Gynecology
DX: Z34.93 Encounter for supervision of normal pregnancy, unspecified, third trimester (principal)
CPT/HCPCS: 87081; 87653

== ENCOUNTER 2025-11-05 05:58 | Outpatient (CLI) | payer OTHER, SELFPAY ==
[2025-11-05 06:32] VITALS: BP 124/81; PULSE 69
[2025-11-05 06:33] VITALS: PULSE 221; RESP 16; TEMP 36.7; O2SAT 97
[2025-11-05 06:49] LABS: Appearance Urine Cloudy (Clear)
--- NOTE | 2025-11-05 07:28 | PC.OBNST ---
NST Note NST Note Start: 11/05/25 06:17 Freq: ONCE Status: Active Protocol: Document 11/05/25 07:26 RRP (Rec: 11/05/25 07:28 RRP No Response) NST Note 3 Para (# of births) 1 EDC 11/09/25 Gestational Age In 39 Weeks & 3 Days Weeks & Days Patient Presented Contractions/cramping,Other with Complaint(s) of Other Complaints back pain Reactive Yes Appropriate for Yes Gestational Age CIARA Max Date 11/05/25 Reactive Yes Appropriate for Yes Gestational Age CIARA Barba Date 11/05/25 OB NST charge Yes Complete NST Note Yes via Write Note The provider's electronic signature indicates the NST is reactive/appropriate for gestational age. *Note to provider: If an addendum is required, open the patient's chart and click on the note under the Nurse/Allied Health tab.
[2025-11-05] MEDS: ACETAMINOPHEN 500 MG TABLET 1000 MG PO (08:04)
[2025-11-05] MEDS: cefTRIAXone 1 GM in 0.9 % SODIUM CHLORIDE Mini-bag 100 ML IVPB (08:05)
[2025-11-05] MEDS: LACTATED RINGERS 1000 ML 1,000 ML 999 ML IV (08:40)
[2025-11-05 09:17] VITALS: BP 130/80; PULSE 68
[2025-11-05 09:18] VITALS: RESP 17; TEMP 36.9
--- NOTE | 2025-11-05 10:20 | PC.OBNST ---
NST Note NST Note Start: 11/05/25 06:17 Freq: ONCE Status: Active Protocol: Document 11/05/25 10:18 [facility] (Rec: 11/05/25 10:20 [facility] No Response) NST Note 3 Para (# of births) 1 EDC 11/09/25 Gestational Age In 39 Weeks & 3 Days Weeks & Days Patient Presented Contractions/cramping,Other with Complaint(s) of Other Complaints constant back pain. Diagnosed with UTI Reactive Yes Appropriate for Yes Gestational Age RN Donnell RN Date 11/05/25 Reactive Yes Appropriate for Yes Gestational Age RN Spenser RN Date 11/05/25 OB NST charge Yes Complete NST Note Yes via Write Note The provider's electronic signature indicates the NST is reactive/appropriate for gestational age. *Note to provider: If an addendum is required, open the patient's chart and click on the note under the Nurse/Allied Health tab.
== END 2025-11-05 10:20 | disposition home or self-care (01) ==
LOC: OB OUT 06:12 → OB 06:13
PROVIDERS: Visit Provider Obstetrics & Gynecology
DX: O47.1 False labor at or after 37 completed weeks of gestation (principal); O23.43 Unspecified infection of urinary tract in pregnancy, third trimester; N39.0 Urinary tract infection, site not specified; Z3A.39 39 weeks gestation of pregnancy
CPT/HCPCS: 59025; 81001; 81003; 87086; G0463; A9270; J0696; J2270; J7120